=== PATIENT | female | born 2000 | race Caucasian/White ===

== ENCOUNTER 2022-11-18 18:28 | Emergency (ER) | payer OTHER, SELFPAY ==
[2022-11-18 18:35] VITALS: BP 105/69; PULSE 75; RESP 18; TEMP 36.8; O2SAT 99
--- NOTE | 2022-11-18 18:53 | ED.ABDPAIN ---
HPI - Abdominal Pain General Chief Complaint: Abdominal Pain Stated Complaint: Abdominal Pain Time Seen by Provider: 11/18/22 18:50 Source: patient, RN notes reviewed and old records reviewed Mode of arrival: ambulatory Limitations: no limitations History of Present Illness HPI narrative: 22 year old female who presents to [facility] care with complaints of some right lower abdominal discomfort with increased discomfort when she urinates, which started yesterday with increased symptoms today. Patient denies any nausea or vomiting, denies any fevers, chills or sweats,denies any diarrhea. Patient states some discomfort to her lower back denies any radiation of her back discomfort. Patient has no McBurney point tenderness on palpation no rebound. Patient reports history of gas related to lactose intolerance. MD elicited complaint: abdominal pain Onset (ago): day(s) (day 2 of symptoms) Pain scale (0-10): 2 Quality: sharp (at times) and dull Treatments prior to arrival: other (none) Related Data Patient : No Home Medications Medication Instructions Recorded Confirmed buspirone 7.5 mg tablet 7.5 mg PO BID 11/18/22 11/18/22 citalopram 40 mg tablet 40 mg PO DAILY 11/18/22 11/18/22 Allergies Allergy/AdvReac Type Severity Reaction Status Date / Time amoxicillin Allergy Mild unknown Verified 11/18/22 18:39 Review of Systems Review of Systems: CONSTITUTIONAL: Denies fever, chills, or sweats. ENT: Denies rhinorrhea, congestion, sore throat, or otalgia. CARDIOVASCULAR: Denies chest pain, palpitations, or edema. RESPIRATORY: Denies cough or dyspnea. GASTROINTESTINAL: Reports lower right abdominal pain reports increased pain when she urinates no nausea, vomiting, diarrhea.states increased pain when she bends or squats GENITOURINARY: states increased abdominal pain when she urinates, denies any burning or hematuria, denies any urinary frequency or urgency. SKIN: Denies rash or itching. MUSCULOSKELETAL: Reports that she has some lower back pain, no reported joint pain, or myalgia. NEUROLOGIC: Denies headache, numbness, or weakness. All systems reviewed & are unremarkable except as noted in HPI and below PMFSH Past Medical History Medical History (Updated 11/20/22 @ 15:57 by Sonia Vallejo NP) Anxiety and depression Kidney infection Lactose intolerance Social History Social History (Updated 11/20/22 @ 15:56 by Sonia Vallejo NP) Smoking status: Never smoker Alcohol intake: current Alcohol use details: social Substance use type: does not use Gender identity (if verbalized by the patient): Female Comments At time of signature, agree with nursing past medical, surgical, social and family history. There is no relevant family history pertinent to the presenting complaint Exam Narrative: GENERAL: Well-appearing, well-nourished, and in no acute distress. HEAD: Normocephalic, atraumatic. EYES: PERRLA, conjunctivae clear, and EOMI. ENT: Nares clear. Mucous membranes moist. Oropharynx without edema, erythema, or lesions. Tonsils not enlarged and without exudate. NECK: Supple. No lymphadenopathy CHEST: Speaks in full sentences. No respiratory distress.SAO2 99% on room air HEART: Regular rate and rhythm. ABDOMEN: Soft, flat, nondistended. No guarding, rebound tenderness, or rigidity. No pulsatilla masses. Bowel sounds present in all four quadrants. No organomegaly. Negative Lomax?s sign. No periumbilical tenderness. No Supra pubic tenderness or distension.no McBurney point tenderness. Good femoral pulses bilaterally. No hernia noted. No scars or surface trauma. SKIN: Warm, dry, no rash. NEURO:? Alert and oriented x3. PSYCH: Normal mood and affect Course Course Emergency Course: Patient is aware of diagnosis, understands and agrees to treatment plan.? Anticipatory guidance given.? Patient agrees to follow-up as directed and is aware of reasons to seek care at the emergency department.
== END 2022-11-18 19:10 | disposition home or self-care (01) ==
PROVIDERS: Emergency Provider Registered Nurse
DX: R30.0 Dysuria (principal); F41.9 Anxiety disorder, unspecified; F32.A Depression, unspecified
CPT/HCPCS: 81003; 87086; 99203; G0463

== ENCOUNTER 2024-10-02 17:12 | Emergency (ER) | payer OTHER, SELFPAY ==
[2024-10-02 19:44] VITALS: BP 126/83; PULSE 65; RESP 16; TEMP 36.4; O2SAT 100
--- NOTE | 2024-10-02 19:45 | ED_ITS ---
HPI - Skin/Abscess/Foreign Bdy General Chief complaint: Skin/Abscess/Foreign Body Stated complaint: tick bite rt leg Time Seen by Provider: 10/02/24 19:45 Source: patient, RN notes reviewed and old records reviewed Mode of arrival: ambulatory Limitations: no limitations History of Present Illness HPI narrative: 24-year-old female presents to the [facility] with concerns of part of the tick still left in her posterior knee. States that she was walking through the was on Sunday, noticed the tick today, removed it. Has some redness and swelling. Denies fevers. Full range of motion of the knee. Related Data Home Medications ?Medication ?Instructions ?Recorded ?Confirmed ?Last Taken ?Type buspirone 7.5 mg tablet 7.5 mg PO BID 11/18/22 11/18/22 Unknown History citalopram 40 mg tablet 40 mg PO DAILY 11/18/22 11/18/22 Unknown History Allergies Allergy/AdvReac Type Severity Reaction Status Date / Time amoxicillin Allergy Mild unknown Verified 11/18/22 18:39 Review of Systems Review of Systems: All systems reviewed & are unremarkable except as noted in HPI and below Constitutional: Constitutional: Reports no additional constitutional complaints ENT: Reports system reviewed and no additional complaints, except as documented Cardiovascular: Cardiovascular: Reports no additional cardiovascular complaints, Denies chest pain and Denies dyspnea Respiratory: Respiratory: Reports no additional respiratory complaints, Denies chest congestion, Denies cough and Denies dyspnea Musculoskeletal: Musculoskeletal: Reports no additional musculoskeletal complaints Integumentary/Breasts: Skin/Breast: Reports as per HPI [facility] Past Medical History Medical History Lactose intolerance Kidney infection Anxiety and depression Social History Social History Smoking status: Never smoker Alcohol intake: current Alcohol use details: social Substance use type: does not use Gender identity (if verbalized by the patient): Female Comments At the time of my signature, I reviewed and agree with the nursing past medical, surgical, social, and family history. There is no relevant family history pertinent to the patient complaint. Exam Const: General: cooperative, healthy appearing, comfortable, no acute distress, well developed, alert and well nourished Nutritional Appearance: well nourished Orientation/consciousness: patient oriented x3 Limitations: no limitations HENMT: Head: normal to inspection Eyes: General: appearance normal, both eyes and all related structures Alignment and Position: alignment normal Neck: Neck: normal visual inspection, full ROM, no lymphadenopathy and no meningeal signs Chest: Chest palpation & inspection: normal inspection of the chest Resp: Effort & Inspection: normal respiratory effort and able to speak in complete sentences Cardio: Rate: regular rate Skin: General skin exam: normal color and no rashes or lesions noted Other: Right posterior knee, small red area, black center. Neuro: General: patient oriented x3, gait normal, moves all extremities and no meningeal signs Cognition (Neuro): normal cognition Speech: normal speech Gait exam (Neuro): Normal gait present Extrem: General: normal to inspection, full ROM, capillary refill normal and normal gait Left lower extremity: knee Details: normal to inspection and normal ROM; no swelling Psych: Appearance: grossly normal and well kempt Mental Status: mental status grossly normal Speech and movement: Normal speech and movement present and Clear speech present Affect: normal affect Attitude: cooperative Course Course Level of Care: Express Care Visit Vital Signs Vital signs: Vital Signs Temperature 97.5 F L 10/02/24 19:44 Pulse Rate 65 10/02/24 19:44 Respiratory Rate 16 10/02/24 19:44 Blood Pressure 126/83 10/02/24 19:44 Pulse Oximetry 100 10/02/24 19:44 Temperature 97.5 F L 10/02/24 19:44 Pulse Rate 65 10/02/24 19:44 Respiratory Rate 16 10/02/24 19:44 Blood Pressure 126/83 10/02/24 19:44 Pulse Oximetry 100 10/02/24 19:44 Reviewed MDM - Skin/Abscess/Foreign Bdy MDM Narrative Medical decision making narrative: Patient sitting in exam room. Patient is nontoxic, vitals are stable. Patient presents with concerns of a piece of tick still left in her skin. Area cleaned with wound cleanser, used 18 gauge, scraped out a darkened area scab versus tick head. Patient placed on doxycycline. Encouraged to follow-up with primary care provider Patient appropriate for outpatient treatment with close follow up Discharge instructions reviewed with patient, as well as provided in writing per nursing staff. The instructions also include specific and strict return/GO TO THE ER as well as f/u information. All questions have been answered, and the patient deny any further questions with discharge and discharge plan. Some parts of this dictation were generated by voice recognition software and may contain typographical and/or grammatical inaccuracies. Differential Diagnosis Differential diagnosis: Likely abscess of skin or subcutaneous tissue, viral exanthem, dermatophytosis, urticaria, herpes zoster, allergic reaction to drug, cellulitis, eczema, insect bites and contact dermatitis Critical Care Time Critical Care Time Critical Care Time: No Discharge Plan Discharge Clinical Impression: Visit for wound check Tick bite Qualifiers: Encounter type: initial encounter Patient Disposition: Home Condition: Stable Instructions: Antibiotic Form, Tick Bite (ED) Additional Instructions: Wash twice a day with warm soapy water, pat dry Take antibiotic as prescribed Follow-up with primary care provider Worsening symptoms go directly to the emergency room Patient Language: Slovak Prescriptions: New doxycycline monohydrate 100 mg tablet 100 mg PO BID Qty: 20 0RF No Action citalopram 40 mg tablet 40 mg PO DAILY buspirone 7.5 mg tablet 7.5 mg PO BID nitrofurantoin monohyd/m-cryst [Macrobid] 100 mg capsule 100 mg PO Q12H 3 Days Qty: 6 0RF Rx Instructions: must administer with a meal/food Follow-up/Referrals: Jonathan,Yves Larson MD [Primary Care Provider] - 2 Weeks (express care follow up ) Time of Disposition: 19:53
== END 2024-10-02 20:01 | disposition home or self-care (01) ==
PROVIDERS: Emergency Provider Nurse Practitioner; PCP Family Medicine
DX: S80.261A Insect bite (nonvenomous), right knee, initial encounter (principal); W57.XXXA Bitten or stung by nonvenomous insect and other nonvenomous arthropods, initial encounter
CPT/HCPCS: 99213; G0463